=== PATIENT | male | born 2000 | race Caucasian/White ===

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

== ENCOUNTER 2018-01-05 18:07 | Emergency (ER) | payer OTHER ==
[2018-01-05 19:23] VITALS: BP 132/83
--- NOTE | 2018-01-05 19:43 | ED ---
Throat Pain/Nasal Congestion - HPI Summary HPI Summary: 17-year-old male presents with sore throat for the past 2 days. He states he's been more fatigued than normal. He admits to body aches and chills. He admits to sinus congestion and dry cough. He denies any chest pain or shortness breath. He denies any fevers or headaches. Denies abdominal pain nausea vomiting or diarrhea. He states he has been on the past and that this doesn't feel similar. He states he did not sleep well this weekend. He has no medical conditions. No one else is sick. - History of Current Complaint Chief Complaint: UCGeneralIllness Time Seen by Provider: 01/05/18 19:28 - Allergies/Home Medications Allergies/Adverse Reactions: Allergies Allergy/AdvReac Type Severity Reaction Status Date / Time No Known Allergies Allergy Verified 01/05/18 19:23 PMH/Surg Hx/FS Hx/Imm Hx Endocrine/Hematology History: Denies: Hx Diabetes, Hx Thyroid Disease Cardiovascular History: Denies: Hx Hypertension Respiratory History: Denies: Hx Asthma, Hx Chronic Obstructive Pulmonary Disease (COPD) GI History: Denies: Hx Ulcer - Surgical History Surgery Procedure, Year, and Place: Addenoidectomy- 2007 Infectious Disease History: No Infectious Disease History: Denies: Hx Hepatitis, Hx Human Immunodeficiency Virus (HIV), Traveled Outside the [place] in Last 30 Days - Family History Known Family History: Positive: Hypertension, Diabetes - Social History Alcohol Use: Weekly Substance Use Type: Reports: None, Marijuana Smoking Status (MU): Former Smoker Review of Systems Positive: Chills, Fatigue. Negative: Fever Positive: Sore Throat Negative: Chest Pain Positive: Cough. Negative: Shortness Of Breath Negative: Abdominal Pain All Other Systems Reviewed And Are Negative: Yes Physical Exam Triage Information Reviewed: Yes Vital Signs On Initial Exam: Initial Vitals Temp Pulse Resp BP Pulse Ox 97.8 F 87 20 132/83 99 01/05/18 19:20 01/05/18 19:20 01/05/18 19:20 01/05/18 19:20 01/05/18 19:20 Vital Signs Reviewed: Yes Appearance: Positive: Ill-Appearing Skin: Positive: Warm, Dry Head/Face: Positive: Normal Head/Face Inspection Eyes: Positive: Normal, EOMI, HONORIO, Conjunctiva Clear ENT: Positive: Pharyngeal erythema, TMs normal, Tonsillar swelling - +3, Uvula midline, Other - soft palate symmetric. Negative: Tonsillar exudate, Trismus, Muffled voice Neck: Positive: Supple, Nontender, No Lymphadenopathy Respiratory/Lung Sounds: Positive: Clear to Auscultation, Breath Sounds Present Cardiovascular: Positive: Normal, RRR Abdomen Description: Positive: Nontender, Soft Bowel Sounds: Positive: Present Musculoskeletal: Positive: Normal Neurological: Positive: Normal Psychiatric: Positive: Normal Diagnostics - Vital Signs Vital Signs Temp Pulse Resp BP Pulse Ox 01/05/18 19:20 97.8 F 87 20 132/83 99 - Laboratory Lab Statement: Any lab studies that have been ordered have been reviewed, and results considered in the medical decision making process. EENT Course/Dx - Course Course Of Treatment: 17-year-old male presents with sore throat for the past 2 days. He states he's been more fatigued than normal. He admits to body aches and chills. He admits to sinus congestion and dry cough. He denies any chest pain or shortness breath. He denies any fevers or headaches. Denies abdominal pain nausea vomiting or diarrhea. He states he has been on the past and that this doesn't feel similar. He states he did not sleep well this weekend. He has no medical conditions. No one else is sick. On exam tonsils are +3, uvula midline, soft palate symmetric. Lungs clear to auscultation. flu negative. Flu negative. We'll treat with Decadron and magic mouth wash. will have follow up with [facility] about blood pressure. Patient understands and agrees plan. - Differential Diagnoses Differential Diagnoses: Pharyngitis, Tonsilitis, URI/Bronchitis - Diagnoses Provider Diagnoses: Pharyngitis Discharge - Discharge Plan Condition: Good Disposition: HOME Prescriptions: Dexamethasone TAB* [Decadron TAB*] 4 mg PO DAILY #5 tab Magic Mouth Was-JUANITA/MAAL/LIDO* 5 ml SWISH SPIT QID #100 ml Patient Education Materials: Pharyngitis (ED) Forms: *School Release Referrals: [facility] - Tom RANKINll [Primary Care Provider] - Additional Instructions: Magic mouthwash 5ml swish and spit can use 4x a day Take steroid once a day for 5 days Take Tylenol or ibuprofen for pain every 6 hours Use saline spray in nose as much as needed for nasal congestion Can gargle salt water Can use cough drops or products such as cloraseptic spray Follow up with [facility] within 5 days Return to ED if develop fever does not respond to Tylenol or ibuprofen, inability to swallow, or any new or worsening symptoms
== END 2018-01-05 20:01 | disposition home or self-care (01) ==
LOC: UCEAST 18:07
DX: J02.9 Acute pharyngitis, unspecified (principal); Z87.891 Personal history of nicotine dependence
CPT/HCPCS: 87502; 87651; 99211; G0463

== ENCOUNTER 2019-08-27 12:27 | Emergency (ER) | payer OTHER ==
--- NOTE | 2019-08-27 14:24 | ED ---
Laceration/Wound HPI - HPI Summary HPI Summary: Patient is a 19-year-old male who presents emergency department for a laceration to left great toe that occurred today. Patient states he was walking up the steps in his house when a metal landing on the steps cut his left great toe. Patient states he was wearing flip-flops at the time and metal did not go through flip-flops first. Patient states his last tetanus immunization was 9 years ago. No past medical history. Symptoms are mild in severity. No current modifying factors. - History of Current Complaint Stated Complaint: TOE LACERATION Time Seen by Provider: 08/27/19 14:22 Hx Obtained From: Patient Pain Intensity: 3 - Allergy/Home Medications Allergies/Adverse Reactions: Allergies Allergy/AdvReac Type Severity Reaction Status Date / Time No Known Allergies Allergy Verified 08/27/19 12:32 PMH/Surg Hx/FS Hx/Imm Hx Previously Healthy: Yes Endocrine/Hematology History: Denies: Hx Diabetes, Hx Thyroid Disease Cardiovascular History: Denies: Hx Hypertension Respiratory History: Denies: Hx Asthma, Hx Chronic Obstructive Pulmonary Disease (COPD) GI History: Denies: Hx Ulcer - Surgical History Surgery Procedure, Year, and Place: Addenoidectomy- 2007 Infectious Disease History: No Infectious Disease History: Denies: Hx Hepatitis, Hx Human Immunodeficiency Virus (HIV), Traveled Outside the [place] in Last 30 Days - Family History Known Family History: Positive: Hypertension, Diabetes - Social History Occupation: Student Lives: Dormitory/Roommates Alcohol Use: Weekly Substance Use Type: Reports: None Smoking Status (MU): Former Smoker Review of Systems Positive: Other - laceration to left great toe Neurological: Negative All Other Systems Reviewed And Are Negative: Yes Physical Exam Triage Information Reviewed: Yes Vital Signs On Initial Exam: Initial Vitals Temp Pulse Resp BP Pulse Ox 98.0 F 105 16 156/98 98 08/27/19 12:30 08/27/19 12:30 08/27/19 12:30 08/27/19 12:30 08/27/19 12:30 Vital Signs Reviewed: Yes Appearance: Positive: Well-Appearing - Patient sitting on chair no acute distress. Friend present. Skin: Positive: Warm, Dry Head/Face: Positive: Normal Head/Face Inspection Eyes: Positive: Normal, EOMI Neck: Positive: Supple Musculoskeletal: Positive: Normal, Strength/ROM Intact, Other - To centimeter skin flap noted to the plantar aspect of the left great toe. Wound is well approximated without bleeding. No bony tenderness. Full range of motion of digit. Neurological: Positive: Normal, CN Intact II-III Procedures - Procedure Summary Procedure Summary: Wound care: 2 cm laceration to left to was irrigated and cleaned with Hibiclens. 3 layers of Dermabond glue were placed with good approximation. Patient tolerated well. - Sedation Patient Received Moderate/Deep Sedation with Procedure: No Diagnostics - Vital Signs Vital Signs Temp Pulse Resp BP Pulse Ox 08/27/19 12:30 98.0 F 105 16 156/98 98 - Laboratory Lab Statement: Any lab studies that have been ordered have been reviewed, and results considered in the medical decision making process. Laceration Repair Course/Dx - Course Course Of Treatment: Patient with laceration that was repaired as noted above. Tetanus updated. Advised patient to keep wound clean and dry. To return to the ER for redness, swelling or drainage to wound. Patient understands and agrees with plan. - Differential Dx Differental Diagnoses: Laceration, Tendon Laceration - Clinical Impression Provider Diagnoses: Flap laceration of skin Discharge ED - Sign-Out/Discharge Documenting (check all that apply): Patient Departure - Discharge Plan Condition: Improved Disposition: HOME Patient Education Materials: Laceration (ED), Skin Adhesive Care (ED) Referrals: [facility] - Gil RANKIN [Primary Care Provider] - Additional Instructions: Follow up with [facility] if needed Keep wound clean and dry Return to ER for redness, swelling, drainage from wound - Billing Disposition and Condition Condition: IMPROVED Disposition: Home
[2019-08-27] MEDS ORDERED: Tetan/Diph/Pertus SYR(Tdap)* 0.5 ML SYR(BOOSTRIX) use SYR contains LATEX IM ONE (15:00)
[2019-08-27 16:27] VITALS: BP 133/79
== END 2019-08-27 16:24 | disposition home or self-care (01) ==
LOC: ED 12:27
DX: S91.112A Laceration without foreign body of left great toe without damage to nail, initial encounter (principal); Z23 Encounter for immunization; W45.8XXA Other foreign body or object entering through skin, initial encounter; W22.8XXA Striking against or struck by other objects, initial encounter; Y92.009 Unspecified place in unspecified non-institutional (private) residence as the place of occurrence of the external cause; Z87.891 Personal history of nicotine dependence
CPT/HCPCS: 12001; 90471; 90715; 99282